=== PATIENT | male | born 1985 | race Caucasian/White ===

== ENCOUNTER 2024-07-24 16:11 | Inpatient (IN) | payer OTHER ==
[2024-07-24 17:29] LABS: BASO % 1.1 % (0-2.0); EOS % 1.8 % (0-4.5); HEMOGLOBIN 15.2 GM/dL (11.7-16.9); LYMPH % 24.7 % (8-40); MCH 29.8 pg (25.7-33.7); MCHC 32.9 g/dl (32.0-35.9); MEAN CELL VOLUME 90.6 fl (80-96); MEAN PLT VOLUME 9.5 fl (7.5-11.1); MONO % 6.5 % (3.8-10.2); NEUT % 65.9 % (42.8-82.8); PLATELET COUNT 306 10^3/uL (134-434); RBC 5.08 M/mm3 (4.00-5.60); WHITE BLOOD COUNT 14.8 K/mm3 (4.0-10.0)
[2024-07-24] MEDS ORDERED: ACETAMINOPHEN INJECTION 100 ML ONE (17:31)
[2024-07-24] MEDS ORDERED: CEFTRIAXONE 1 GM/50 ML BAG ONE (17:33)
[2024-07-24] MEDS: ACETAMINOPHEN 1000 MG/100 ML BAG IVPB ONE (17:39)
[2024-07-24 17:49] LABS: POTASSIUM 4.4 mmol/L (3.5-5.1)
[2024-07-24 17:51] LABS: ALBUMIN 3.8 g/dl (3.4-5.0); BLOOD UREA NITROGEN 14.1 mg/dL (7-18); CALCIUM 9.8 mg/dL (8.5-10.1)
[2024-07-24 17:52] LABS: INR 1.08 (0.83-1.09); PROTHROMBIN TIME (PATIENT) 12.4 SEC (9.7-13.0)
[2024-07-24 17:54] LABS: CREATININE 0.9 mg/dL (0.55-1.3)
[2024-07-24 17:55] LABS: ACTIVATED PTT 30.5 SECONDS (25.2-36.5)
[2024-07-24 17:56] LABS: BILIRUBIN,TOTAL 0.4 mg/dL (0.2-1)
[2024-07-24] MEDS ORDERED: VANCOMYCIN/WATER 1250 MG 1,250 MG/250 ML BAG IVPB ONE (18:10)
[2024-07-24] MEDS: VANCOMYCIN/WATER 1250 MG 1,250 MG/250 ML BAG IVPB ONE (18:19)
[2024-07-24 18:22] LABS: ERYTHROCYTE SEDIMENTATION RATE 28 mm/hr (0-10)
[2024-07-24 22:25] VITALS: BMI 30.9
[2024-07-25 00:56] LABS: HIV INTERPRETATION NEGATIVE (NEGATIVE)
[2024-07-25] MEDS: HEPARIN NA (PORCINE) 5,000 UNITS/ML 1ML VIAL SQ SCH (05:15)
[2024-07-25] MEDS: ACETAMINOPHEN 500 MG TABLET (FP) PO PRN (09:40)
[2024-07-25] MEDS: VANCOMYCIN PREMIX 1.5 GM 1,500 MG/300 ML BAG IVPB SCH (09:41)
[2024-07-25 09:51] LABS: POTASSIUM 4.4 mmol/L (3.5-5.1)
[2024-07-25 10:02] LABS: HEMATOCRIT 42.3 % (35.4-49); HEMOGLOBIN 13.8 GM/dL (11.7-16.9); MCH 30.2 pg (25.7-33.7); MCHC 32.5 g/dl (32.0-35.9); MEAN CELL VOLUME 92.8 fl (80-96); MEAN PLT VOLUME 9.5 fl (7.5-11.1); PLATELET COUNT 296 10^3/uL (134-434); RBC 4.56 M/mm3 (4.00-5.60); RDW 13.5 % (11.9-15.9); WHITE BLOOD COUNT 12.9 K/mm3 (4.0-10.0)
[2024-07-25 10:11] LABS: ALBUMIN 3.3 g/dl (3.4-5.0); BLOOD UREA NITROGEN 11.1 mg/dL (7-18); CALCIUM 9.2 mg/dL (8.5-10.1); MAGNESIUM 2.4 mg/dL (1.8-2.4)
[2024-07-25 10:13] LABS: BILIRUBIN,TOTAL 0.6 mg/dL (0.2-1); TOT PROT 7.1 g/dl (6.4-8.2)
[2024-07-25 10:14] LABS: CREATININE 0.8 mg/dL (0.55-1.3); PHOSPHOROUS 4.1 mg/dL (2.5-4.9)
[2024-07-25] MEDS: CEFTRIAXONE 1 G/50 ML PREMIX 50 ML IVPB SCH (13:14)
[2024-07-25] MEDS: CEFTRIAXONE 1 GM in DEXTROSE 5%-WATER - 50 ML IVPB SCH (15:36)
[2024-07-25] MEDS: PIPERACILLIN/TAZOB 3.375 GM 3.375 GM in DEXTROSE 5%-WATER - 50 ML IVPB SCH (19:21)
[2024-07-26 09:49] LABS: BASO % 1.3 % (0-2.0); EOS % 2.8 % (0-4.5); HEMOGLOBIN 14.5 GM/dL (11.7-16.9); LYMPH % 41.7 % (8-40); MCH 30.3 pg (25.7-33.7); MCHC 32.9 g/dl (32.0-35.9); MEAN CELL VOLUME 92.3 fl (80-96); MEAN PLT VOLUME 9.1 fl (7.5-11.1); MONO % 6.2 % (3.8-10.2); PLATELET COUNT 331 10^3/uL (134-434); RBC 4.77 M/mm3 (4.00-5.60); RDW 13.5 % (11.9-15.9); WHITE BLOOD COUNT 12.9 K/mm3 (4.0-10.0)
[2024-07-26 10:13] LABS: POTASSIUM 4.5 mmol/L (3.5-5.1)
[2024-07-26 10:51] LABS: CALCIUM 9.4 mg/dL (8.5-10.1)
[2024-07-26 10:52] LABS: ALBUMIN 3.5 g/dl (3.4-5.0)
[2024-07-26 10:55] LABS: CREATININE 0.9 mg/dL (0.55-1.3)
[2024-07-26 10:57] LABS: BILIRUBIN,TOTAL 0.5 mg/dL (0.2-1); TOT PROT 7.6 g/dl (6.4-8.2)
[2024-07-26] MEDS: VANCOMYCIN PREMIX 1.5 GM 1,500 MG/300 ML BAG IVPB SCH (12:28)
[2024-07-27 08:32] LABS: BASO % 1.5 % (0-2.0); EOS % 4.2 % (0-4.5); HEMATOCRIT 41.8 % (35.4-49); HEMOGLOBIN 13.8 GM/dL (11.7-16.9); LYMPH % 45.9 % (8-40); MCH 30.1 pg (25.7-33.7); MCHC 32.9 g/dl (32.0-35.9); MEAN CELL VOLUME 91.6 fl (80-96); NEUT % 42.4 % (42.8-82.8); PLATELET COUNT 335 10^3/uL (134-434); RBC 4.56 M/mm3 (4.00-5.60); WHITE BLOOD COUNT 9.7 K/mm3 (4.0-10.0)
[2024-07-27 08:36] LABS: POTASSIUM 4.6 mmol/L (3.5-5.1)
[2024-07-27 08:50] LABS: CALCIUM 9.3 mg/dL (8.5-10.1)
[2024-07-27 08:51] LABS: ALBUMIN 3.3 g/dl (3.4-5.0); BLOOD UREA NITROGEN 11.1 mg/dL (7-18)
[2024-07-27 08:54] LABS: CREATININE 0.9 mg/dL (0.55-1.3)
[2024-07-27 08:56] LABS: BILIRUBIN,TOTAL 0.3 mg/dL (0.2-1); TOT PROT 6.9 g/dl (6.4-8.2)
[2024-07-28 07:52] VITALS: RESP 18
[2024-07-28 11:02] LABS: BASO % 2.3 % (0-2.0); EOS % 3.5 % (0-4.5); HEMATOCRIT 42.1 % (35.4-49); HEMOGLOBIN 13.7 GM/dL (11.7-16.9); LYMPH % 45.8 % (8-40); MCH 30.2 pg (25.7-33.7); MCHC 32.6 g/dl (32.0-35.9); MEAN CELL VOLUME 92.4 fl (80-96); MONO % 6.1 % (3.8-10.2); NEUT % 42.3 % (42.8-82.8); PLATELET COUNT 344 10^3/uL (134-434); RBC 4.56 M/mm3 (4.00-5.60); WHITE BLOOD COUNT 9.5 K/mm3 (4.0-10.0)
[2024-07-28 11:46] LABS: POTASSIUM 4.4 mmol/L (3.5-5.1)
[2024-07-28 11:49] LABS: CALCIUM 9.2 mg/dL (8.5-10.1)
[2024-07-28 11:50] LABS: BLOOD UREA NITROGEN 10.9 mg/dL (7-18)
[2024-07-28 11:53] LABS: CREATININE 0.8 mg/dL (0.55-1.3)
[2024-07-28 15:25] VITALS: BP 121/73; PULSE 65; TEMP 97.9
[2024-07-28] MEDS: PIPERACILLIN/TAZOB 3.375 GM 50 ML IVPB SCH (18:47)
== END 2024-07-28 19:10 | disposition home health service (06) | DRG 603 ==
LOC: JER 16:11 → JERBED 19:14 → J7W 20:16 → OBSVTOIN 07-25 13:39
PROVIDERS: ADMIT Internal Medicine; ATTEND Internal Medicine
DX: L03.115 Cellulitis of right lower limb (principal); L97.518 Non-pressure chronic ulcer of other part of right foot with other specified severity; I10 Essential (primary) hypertension; B95.62 Methicillin resistant Staphylococcus aureus infection as the cause of diseases classified elsewhere
CPT/HCPCS: 36415; 73630-TC-RT-FY; 73718-TC-RT; 80048; 80053; 80061; 83036; 83735; 84100; 85025; 85027; 85610; 85651; 85730; 86140; 86803; 86850; 86900; 86901; 87070; 87186; 87205; 87389; 93005; 93010; 99285-25; G0378; G0480; J0131; J1644